=== PATIENT | female | born 1975 | race Caucasian/White ===

== ENCOUNTER → 2020-12-25 | Outpatient (CLI) | payer MEDICARE, OTHER ==
[~2020-12-25] MED LIST: CLARITIN10 MG PO; COZAAR25 MG PO; ECOTRIN81 MG PO; FENOFIBRATE160 MG PO; HYGROTON TAB 2525 MG PO; NEURONTIN400 MG PO; NORCO 10-325 T1 EACH PO; OMEPRAZOLE20 MG PO; OMNICEF 300 MG300 MG PO; TENORMIN 50 MG50 MG PO; VITAMIN D31000 UNI1 PO; ZOLOFT50 MG PO
[2020-12-25 12:26] LABS: HEMOGLOBIN 15.2 gm/dl (12.3-15.3); RED BLOOD COUNT 5.03 M/UL (4.00-5.10); WHITE BLOOD COUNT 14.1 K/UL (4.5-11.0)
[2020-12-25 12:46] LABS: BUN/CREATININE RATIO 14 (0-10)
[2020-12-26 08:14] LABS: THYROXINE (T4) 6.2 ug/dL (4.5-12.0); VITAMIN D, 25-HYDROXY 16.1 ng/mL (30.0-100.0)
== END ==
LOC: LAB 10:57
PROVIDERS: Nurse Practitioner
DX: M54.9 Dorsalgia, unspecified (principal); I10 Essential (primary) hypertension; E78.5 Hyperlipidemia, unspecified; E55.9 Vitamin D deficiency, unspecified; R53.83 Other fatigue; E11.9 Type 2 diabetes mellitus without complications; F41.9 Anxiety disorder, unspecified; R05 Cough
CPT/HCPCS: 36415; 71046; 80053; 80061; 83036; 84436; 84443; 84480; 85025; 85652; 86140

== ENCOUNTER → 2021-06-21 | Outpatient (CLI) | payer MEDICARE, OTHER | LOC: KOH-I 08:49 → MAMO 08:49 → KOH-I 09:30 → MAMO 11:30 | DX: Z12.31 Encounter for screening mammogram for malignant neoplasm of breast (principal); R10.84 Generalized abdominal pain; R16.0 Hepatomegaly, not elsewhere classified | CPT/HCPCS: 74176; 77063; 77067 ==

== ENCOUNTER → 2021-11-01 | Outpatient (CLI) | payer MEDICARE, OTHER ==
[2021-11-01 12:17] LABS: HEMOGLOBIN 14.3 gm/dl (12.3-15.3); RED BLOOD COUNT 4.8 M/UL (4.00-5.10); WHITE BLOOD COUNT 17.8 K/UL (4.5-11.0)
[2021-11-01 12:38] LABS: BUN/CREATININE RATIO 21 (0-10)
[2021-11-02 08:17] LABS: THYROXINE (T4) 7.2 ug/dL (4.5-12.0); VITAMIN D, 25-HYDROXY 20.6 ng/mL (30.0-100.0)
== END ==
LOC: LAB 11:30
PROVIDERS: Nurse Practitioner
DX: I10 Essential (primary) hypertension (principal); F41.9 Anxiety disorder, unspecified; F34.9 Persistent mood [affective] disorder, unspecified; K21.9 Gastro-esophageal reflux disease without esophagitis; R10.84 Generalized abdominal pain; R53.83 Other fatigue; E55.9 Vitamin D deficiency, unspecified
CPT/HCPCS: 36415; 80053; 80061; 81001; 84436; 84443; 84480; 85025